=== PATIENT | male | born 1960 | race Two or more races ===

== ENCOUNTER 2016-06-23 18:14 | Emergency (ER) | payer OTHER ==
[2016-06-23 21:52] VITALS: BP 128/79
== END 2016-06-23 21:52 | disposition home or self-care (01) ==
LOC: ED 18:14
DX: M54.5 Low back pain (principal); R03.0 Elevated blood-pressure reading, without diagnosis of hypertension
CPT/HCPCS: J1885; Q0163

== ENCOUNTER 2016-07-15 23:26 | Emergency (ER) | payer OTHER ==
[2016-07-15 23:31] VITALS: BP 112/74
== END 2016-07-16 00:03 | disposition home or self-care (01) ==
LOC: ED 23:26
DX: L30.9 Dermatitis, unspecified (principal); Z79.899 Other long term (current) drug therapy

== ENCOUNTER 2017-07-30 07:46 | Emergency (ER) | payer OTHER ==
[~2017-07-30] VITALS: Ht 167.6 cm; Wt 76.2 kg
[2017-07-30 07:51] VITALS: Ht 167.6 cm; Wt 76.2 kg
[2017-07-30 08:56] VITALS: BP 128/69
== END 2017-07-30 08:56 | disposition home or self-care (01) ==
LOC: ED 07:46
DX: J02.9 Acute pharyngitis, unspecified (principal); M54.5 Low back pain; F17.210 Nicotine dependence, cigarettes, uncomplicated; Z88.0 Allergy status to penicillin; Z71.6 Tobacco abuse counseling
CPT/HCPCS: 99406

== ENCOUNTER 2018-02-09 09:46 | Emergency (ER) | payer MEDICAID ==
[~2018-02-09] VITALS: Ht 170.2 cm; Wt 73.5 kg
[2018-02-09 09:49] VITALS: Ht 170.2 cm; Wt 73.5 kg
[2018-02-09 10:54] LABS: CALCIUM 9.2 mg/dL (8.5-10.1); CARBON DIOXIDE 32.3 mmol/L (21-32); CHLORIDE SERUM 107 mmol/L (98-107); CREATININE SERUM 0.9 mg/dL (0.7-1.3); GFR1 > 60 mL/min; GLUCOSE SERUM 121 mg/dL (74-106); SODIUM SERUM 142 mmol/L (136-145)
[2018-02-09 10:56] LABS: BASOPHIL % 0.4 % (0-2); PLATELET COUNT 313 x10^3mcL (130-400)
[2018-02-09 10:57] LABS: RED CELL DISTRIBUTION WIDTH 14.9 % (11.5-14.5)
[2018-02-09 11:19] VITALS: BP 137/94
== END 2018-02-09 14:01 | disposition home or self-care (01) ==
LOC: ED 09:46
PROVIDERS: Emergency Medicine
DX: J03.90 Acute tonsillitis, unspecified (principal); H92.02 Otalgia, left ear; F17.210 Nicotine dependence, cigarettes, uncomplicated; Z88.0 Allergy status to penicillin; Z98.890 Other specified postprocedural states
CPT/HCPCS: 36415; 86308; 99406; J7030; Q9967

== ENCOUNTER 2018-12-31 07:15 | Emergency (ER) | payer OTHER ==
[~2018-12-31] VITALS: Ht 170.2 cm; Wt 76.7 kg
[2018-12-31 07:21] VITALS: Ht 170.2 cm; Wt 76.7 kg
[2018-12-31 08:36] VITALS: BP 100/63
== END 2018-12-31 08:36 | disposition home or self-care (01) ==
LOC: ED 07:15
DX: M77.31 Calcaneal spur, right foot (principal); F17.210 Nicotine dependence, cigarettes, uncomplicated; Z88.0 Allergy status to penicillin
CPT/HCPCS: J1885

== ENCOUNTER 2019-01-13 19:26 | Emergency (ER) | payer OTHER ==
[~2019-01-13] VITALS: Ht 170.2 cm; Wt 77.3 kg
[2019-01-13 19:30] VITALS: Ht 170.2 cm; Wt 77.3 kg
[2019-01-13 20:38] LABS: BASOPHIL % 0.5 % (0-2); PLATELET COUNT 317 x10^3mcL (130-400)
[2019-01-13 20:48] LABS: RED CELL DISTRIBUTION WIDTH 14.6 % (11.5-14.5)
[2019-01-13 20:50] LABS: CALCIUM 8.8 mg/dL (8.5-10.1); CARBON DIOXIDE 28.3 mmol/L (21-32); CHLORIDE SERUM 105 mmol/L (98-107); GFR1 > 60 mL/min; GLUCOSE SERUM 110 mg/dL (74-106); POTASSIUM SERUM 4.4 mmol/L (3.5-5.1); SODIUM SERUM 141 mmol/L (136-145)
[2019-01-13 21:04] LABS: AMPHETAMINE QUAL UR NONE DETECTED (See below); UA SPECIFIC GRAVITY 1.015 (1.005-1.035)
[2019-01-13 21:05] LABS: ALKALINE PHOSPHATASE 72 U/L (46-116); ALT/SGPT 20 U/L (16-63); AMYLASE 68 U/L (25-115); AST/SGOT 12 U/L (15-37); BILIRUBIN TOTAL 0.31 mg/dL (0.20-1.00); CHOLESTEROL 191 mg/dL (<200); LIPASE 204 IU/L (73-393); T4(THYROXINE) 8.7 ug/dL (4.7-13.3); TOTAL PROTEIN, SERUM 7.3 g/dL (6.4-8.2)
[2019-01-13 21:05] LABS: microscopic required? YES; urine erythrocyte 1+ (NEGATIVE)
[2019-01-13 21:07] LABS: ALBUMIN 3.3 g/dL (3.4-5.0); HDL CHOLESTEROL 33 mg/dL (40-60)
[2019-01-13 23:27] VITALS: BP 106/75
== END 2019-01-13 23:27 | disposition home or self-care (01) ==
LOC: ED 19:26
PROVIDERS: Emergency Medicine
DX: K59.00 Constipation, unspecified (principal); R10.84 Generalized abdominal pain; F17.210 Nicotine dependence, cigarettes, uncomplicated; Z71.6 Tobacco abuse counseling; Z88.0 Allergy status to penicillin
CPT/HCPCS: 83880; 99406; J2405; J3010; J7030